=== PATIENT | male | born 1985 | race Caucasian/White ===

== ENCOUNTER 2019-11-13 09:22 | Day surgery (SDC) | payer MEDICARE, MEDICAID ==
[~2019-11-13 09:22] MED LIST: Buffered Lidocaine 1% SYRIN* 1 ML/SYRINGE INTRADERM ONE; Dexamethasone TAB* 4 MG PO ONE; DiMENhydriNATE IV* 50 MG/ML VIAL IV PUSH PRN; Famotidine IV* 10 MG/ML 2 ML (20 mg) IV ONE; Lactated Ringers 1000 ML Bag* 1,000 ML IV SCH; Naloxone* 0.4 MG/ML 1 ML VIAL IV PRN; Ondansetron ODT TAB* 4 MG PO ONE; PROCHLORPERAZINE INJ 5 MG/ML 2 ML VIAL IV PRN; fentaNYL* 50 MCG/ML 2 ML VIAL (100 MCG VIAL) IV PRN; oxyCODONE TAB* 5 MG TAB PO PRN
[2019-11-13] MEDS ORDERED: Ondansetron ODT TAB* 4 MG ONE (09:51)
[2019-11-13] MEDS ORDERED: Dexamethasone TAB* 4 MG ONE (09:51)
[2019-11-13] MEDS ORDERED: Buffered Lidocaine 1% SYRIN* 1 ML/SYRINGE INTRADERM ONE (09:52)
[2019-11-13] MEDS ORDERED: Famotidine IV* 10 MG/ML 2 ML (20 mg) ONE (09:52)
[2019-11-13] MEDS ORDERED: ceFAZolin 1 GM ADVAN(*) 1 GM ADDV.VIAL IVPB ONE (10:04)
[2019-11-13] MEDS ORDERED: ceFAZolin 2 GM PREMIX in ORs 2 GM/50 ML BAG ONE (10:04)
[2019-11-13] MEDS ORDERED: Bupivacaine 0.5%* 50 ML MDV VIAL ONE (10:31)
[2019-11-13] MEDS ORDERED: Lidocaine 1% INJ* 10 MG/ML 30 ML SDV ONE (10:31)
[2019-11-13] MEDS ORDERED: fentaNYL* 50 MCG/ML 2 ML VIAL (100 MCG VIAL) ONE (11:02)
[2019-11-13] MEDS ORDERED: Propofol* 10 MG/ML 20 ML BTL ONE (11:03)
[2019-11-13] MEDS ORDERED: Midazolam* 1 MG/ML 2 ML VIAL (2 MG) ONE (11:03)
[2019-11-13] MEDS ORDERED: Lidocaine 2% PF * 5 ML VIAL ONE (11:03)
[2019-11-13] MEDS ORDERED: diPHENhydraMINE PO* 25 MG PO PRN (11:54)
[2019-11-13] MEDS ORDERED: Ondansetron ODT TAB* 4 MG PO PRN (11:54)
[2019-11-13] MEDS ORDERED: oxyCODONE TAB* 5 MG TAB PO PRN (11:54)
[2019-11-13] MEDS ORDERED: Morphine INJ* 2 MG/ML 1 ML SYRINGE (TWO MG - NEW SYRINGE VERSION) IV PRN (11:54)
[2019-11-13] MEDS ORDERED: diPHENhydraMINE IV* 50 MG/ML 1 ml VIAL (BENADRYL) IV PRN (11:54)
[2019-11-13] MEDS ORDERED: Cyclobenzaprine TAB* 10 MG PO PRN (11:54)
[2019-11-13] MEDS ORDERED: Ondansetron INJ* 2 MG/ML VIAL IV PRN (11:54)
[2019-11-13] MEDS ORDERED: Lactated Ringers 1000 ML Bag* 1,000 ML IV SCH (12:00)
--- NOTE | 2019-11-13 12:52 | OP ---
Operative Report - Blank - Operative Report Date of Operation: 11/13/19 Note: PATIENT: Tal Reza DATE OF : 1985 DATE OF SURGERY: 11/13/2019 SURGEON: Buck Stanton MD [employer] SPECIALIST: SHIRA Carrasco, whos assistance was necessary for positioning, retraction, help with instrumentation, and closure. ANESTHESIOLOGIST: Dr. Watkins PREOPERATIVE DIAGNOSIS: Left foot plantar ulcer POSTOPERATIVE DIAGNOSIS: Left foot plantar ulcer OPERATION: Left foot irrigation and debridement and placement of a wound VAC ANESTHESIA: MAC IMPLANTS: none TOURNIQUET TIME: Less than 1 hour with an ankle esmarch tourniquet SPECIMENS: Culture swabs to microbiology ESTIMATED BLOOD LOSS: minimal COMPLICATIONS: none STATUS: Stable from the operating room to the recovery room and then admitted. INDICATIONS FOR PROCEDURE: Tal has had a worsening left plantar foot ulcer in the setting of neuropathy and a rocker bottom deformity. Both operative and non-operative treatment alternatives were reviewed. Further, the nature and risks of surgery were reviewed in careful detail. Our discussions regarding the risks of surgery included, but were not limited to, infection, wound problems, nerve injury, neuroma, RSD, persistent symptoms, blood clot, need for further surgery, failure of the surgery, and even the remote chance of catastrophic complication. DESCRIPTION OF PROCEDURE: The patient was seen in the preoperative holding unit and informed written consent was obtained. The appropriate extremity was marked. The patient was then brought to the operating room and carefully positioned on the operating room table. Anesthesia was induced. All bony prominences were padded with great care. A chlorhexidine based pre-scrub was performed followed by a chloraprep prep and drape in standard sterile fashion. A surgical safety pause was then conducted in which we confirmed the appropriate patient, extremity, planned procedure, availability of equipment, indication and administration of prophylactic antibiotics, and DVT prophylaxis in the form of a compression boot on the non-surgical extremity. I began with the placement of an ankle Esmarch tourniquet. I then turned my attention to the plantar wound. Using a 15 blade scalpel to sharply excise the free edges back to bleeding skin. I then used a 15 blade scalpel to sharply debride the tissue within the ulcer. This included the skin, subcutaneous, and fascial tissue down to muscle. This did not track to bone. There was some mild undermining medially. Culture swabs were taken and sent to microbiology. No grossly infected or purulent tissue was encountered. The wound was then thoroughly irrigated. I then released the tourniquet and the remaining tissue appeared to be viable with good blood flow. Hemostasis was obtained. The final wound measured 3 cm in width by 3 cm in length by 1 cm in depth. A wound VAC was then placed sterilely, which held good suction and without any leaks. The patient was then awakened from anesthesia and transferred to the recovery room in stable condition. There were no complications. All needle and sponge counts were correct at the end of the case. ATTESTATION: I attest I was present and scrubbed and performed the critical portions of the procedure myself. POSTOPERATIVE PLAN: We will plan on VAC changes every 3 days.
[2019-11-13] MEDS: Acetaminophen TAB* 325 MG PO SCH ×2 (14:17→20:56)
[2019-11-13] MEDS ORDERED: Sertraline* 100 MG TAB PO SCH (16:30)
[2019-11-13] MEDS: Docusate CAP* 100 MG PO SCH (20:56)
[2019-11-13] MEDS ORDERED: Sertraline* 50 MG TAB PO SCH (21:00)
[2019-11-13] MEDS: ceFAZolin 1 GM ADVAN(*) 1 GM in NS 0.9% 50 ML* 50 ML IVPB SCH (21:05)
[2019-11-14] MEDS: ceFAZolin 1 GM ADVAN(*) 1 GM in NS 0.9% 50 ML* 50 ML IVPB SCH ×2 (04:39→12:21)
[2019-11-14] MEDS: Acetaminophen TAB* 325 MG PO SCH ×2 (04:43→13:50)
[2019-11-14] MEDS: Docusate CAP* 100 MG PO SCH (08:54)
[2019-11-14] MEDS ORDERED: Oxybutynin XL TAB* 5 MG PO SCH (09:00)
[2019-11-14] MEDS ORDERED: Aspirin TAB* 325 MG PO SCH (09:00)
[2019-11-14] MEDS ORDERED: Vitamin THERAPEUTIC TAB PO SCH (09:00)
[2019-11-14] MEDS ORDERED: Sertraline* 100 MG TAB PO SCH (09:00)
[2019-11-14 11:25] VITALS: BP 144/70
--- NOTE | 2019-11-14 13:02 | DS ---
Orthopedic Discharge Summary - Discharge Summary Date of Admission:11/13/19 Date of Discharge: 11/12/2019 Date of Surgery: 11/13/2019 Attending Orthopedic Provider: Dr. Stanton Pre-operative Diagnosis: Left foot plantar ulcer Operative Procedure: Left foot irrigation and debridement and placement of a wound VAC Disposition of Patient: Home Condition of Patient: Good History: KAROL WESTBROOK is a 34 year old M with worsening left plantar foot ulcer in the setting of neuropathy and a rocker bottom deformity. Both operative and non operative treatment was reviewed and he elected for surgical intervention. Hospital Course: KAROL was admitted to [facility] on 11/13/19. Patient underwent a left foot irrigation and debridement and placement of a wound VAC without complication followed by a brief recovery in PACU and transfer to the Short Stay Surgical Unit in stable condition. Post-op day 1: patient was alert and in no acute distress. Dressing was clean, dry and intact. VAC was in place with mild drainage. He has no sensation in exposed toes although toes appear well perfused. Patient was deemed to be medically and orthopedically stable for discharge. Physical therapy goals were met. Home Medications Medication Instructions Recorded Confirmed Type Cephalexin CAP* [Keflex 250 CAP*] 250 mg PO ONCE 11/13/19 11/13/19 History Oxybutynin XL TAB* [Ditropan XL 15 mg PO DAILY 11/13/19 11/13/19 History TAB*] Sertraline HCl [Zoloft] 50 mg PO BEDTIME 11/13/19 11/13/19 History Sertraline HCl [Zoloft] 100 mg PO QAM 11/13/19 11/13/19 History Aspirin TAB* [Aspirin 325 MG TAB*] 325 mg PO DAILY tab 11/14/19 Rx oxyCODONE TAB* [Roxycodone TAB 5 5 mg PO Q4H PRN tab 11/14/19 Rx mg*] Discharge Instructions following Orthopedic Surgery: Activity: * Non Weight Bearing of the Left lower extremity * Continue physical therapy and occupational therapy exercises as shown Wound care: * VAC changes to be done every 3 days, You can have this done by Dr. Stanton at our office, Dr. Bee or at the wound clinic. * Wrap lower leg in bag when showering to avoid getting the vac and dressing wet Call Orthopedic office for: * Increased drainage * Redness * Increased pain * Fever Go to ER with shortness of breath or chest pain. Diet: * Regular diet * Increase fluids and fiber to prevent constipation. * Continue to use stool softeners, call office if no bowel motion within 48 hours. Medications See Home Medication List in your packet for medications that you should take after discharge. DVT Prophylaxis: Aspirin Dosin mg twice a day Pain Control: Oxycodone 5mg 1 tabs by mouth every 6 hours as needed for pain. . Antibiotics: Okay to resume your normal keflex home dosing FOLLOW UP: Follow up with Dr. Stanton Within 10-14 days, call for appointment Please call our office with any questions or concerns ([phone])
== END 2019-11-14 15:34 | disposition home or self-care (01) ==
LOC: OR 09:22 → SSU 11:54
PROVIDERS: ADMIT Orthopaedic Surgery; ATTEND Orthopaedic Surgery
DX: L97.529 Non-pressure chronic ulcer of other part of left foot with unspecified severity (principal); M19.072 Primary osteoarthritis, left ankle and foot; M79.89 Other specified soft tissue disorders; M65.879 Other synovitis and tenosynovitis, unspecified ankle and foot; Q74.2 Other congenital malformations of lower limb(s), including pelvic girdle
CPT/HCPCS: 87070; 87073; 87076; 87077; 87184; 87186; 87205; 87640; 87641; 96365; A9270-GY; G0378; J0690; J2250; J2704; J3010; J3490; J8540